=== PATIENT | male | born 2000 | race Caucasian/White ===

== ENCOUNTER 2019-09-03 20:13 | Emergency (ER) | payer OTHER ==
[~2019-09-03] VITALS: Ht 182.9 cm; Wt 88.5 kg
[2019-09-03 20:26] VITALS: BP_SYST 148
--- NOTE | 2019-09-03 20:26 | NUR ---
Patient triaged and placed in waiting room. VSS and patient appears in no acute distress at this time. Accompanied by SELF, awaiting available bed, and MD notified of need for MSE.
--- NOTE | 2019-09-03 22:00 | NUR ---
CALL PT NAME IN THE WR.NO ANSWER
--- NOTE | 2019-09-03 22:05 | NUR ---
CALL PT NAME IN THE WR.NO ANSWER
--- NOTE | 2019-09-03 22:10 | NUR ---
CALL PT NAME IN THE WR.NO ANSWER
== END 2019-09-03 22:10 | disposition left against medical advice (07) ==
LOC: SED 20:13 → EDBD 20:13 → SED 22:10
DX: M79.18 Myalgia, other site (principal); Z53.21 Procedure and treatment not carried out due to patient leaving prior to being seen by health care provider

== ENCOUNTER 2019-09-04 12:05 | Emergency (ER) | payer OTHER ==
[~2019-09-04] VITALS: Ht 182.9 cm; Wt 88.5 kg
[2019-09-04 12:10] VITALS: BP_SYST 126
--- NOTE | 2019-09-04 12:10 | NUR ---
Patient to ER bed H1 to gown for evaluation. Side rails up. Report given to KAREY Plmumer.
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
--- NOTE | 2019-09-04 12:40 | NUR ---
Dr Angeles at bedside examining patient
[2019-09-04 12:50] VITALS: BP_SYST 126
--- NOTE | 2019-09-04 12:59 | NUR ---
Patient given written and verbal discharge instructions and verbalizes understanding. ER MD discussed with patient the results and treatment provided. Patient in stable condition. ID arm band removed. IV catheter removed intact and dressing applied, no active bleeding. Rx of Neosporin and Tylenol given. Patient educated on pain management and to follow up with PMD. Pain Scale 2/10 tolerable for patient . Opportunity for questions provided and answered. Medication side effect fact sheet provided.
== END 2019-09-04 12:50 | disposition home or self-care (01) ==
LOC: SED 12:05
DX: T20.26XA Burn of second degree of forehead and cheek, initial encounter (principal); T31.0 Burns involving less than 10% of body surface; X10.2XXA Contact with fats and cooking oils, initial encounter; Y93.89 Activity, other specified; Y92.89 Other specified places as the place of occurrence of the external cause; Y99.8 Other external cause status
CPT/HCPCS: 99282